=== PATIENT | male | born 1960 | race Caucasian/White ===

== ENCOUNTER 2018-02-06 12:07 | Inpatient (IN) | payer MEDICARE, OTHER ==
[2018-02-06] MEDS: SOD CHLORIDE 0.9% 100 ML (12:35)
[2018-02-06] MEDS: IODIXANOL LOCM 100 ML BTL (12:36)
[2018-02-06] MEDS: IODIXANOL LOCM 50 ML BTL (12:36)
[2018-02-06 12:48] LABS: ADD MAN DIFF? NO
[2018-02-06 12:51] LABS: BASOPHILS % 0.3 % (0.0-2.0); HEMATOCRIT 40.5 % (42.0-52.0); HEMOGLOBIN 13.2 g/dl (14.0-18.0); LYMPHOCYTES % 9.6 % (15.0-51.0); MEAN CORPUSCULAR HEMOGLOBIN 32.3 pg (29.0-33.0); MEAN CORPUSCULAR HGB CONC 32.6 g/dl (32.0-37.0); MEAN PLATELET VOLUME 11.8 fl (7.4-10.4); MONOCYTE # 1.4 10^3/ul (0.3-0.9); MONOCYTES % 13.7 % (0.0-11.0); NEUTROPHIL # 7.5 10^3/ul (1.6-7.5); NEUTROPHILS % 75.9 % (39.0-77.0); PLATELET COUNT 135 10^3/UL (140-415); POSITIVE DIFF @See below; RED BLOOD COUNT 4.09 10^6/ul (4.70-6.10); RED CELL DISTRIBUTION WIDTH 13.2 % (11.5-14.5)
[2018-02-06 12:51] LABS: WHITE BLOOD COUNT 9.9 10^3/ul (4.8-10.8)
[2018-02-06] MEDS: SODIUM CHLORIDE 0.9% 1L BAG IV* (12:56)
[2018-02-06] MEDS: SOD CHLORIDE 0.9% 500 ML IV (12:56)
[2018-02-06 13:10] LABS: PARTIAL THROMBOPLASTIN TIME 25.8 Sec (25.0-35.0); PROTIME 14.4 Sec (11.9-14.9); PT RATIO 1.1
[2018-02-06 13:18] LABS: ANION GAP 14 (8-16); BLOOD UREA NITROGEN 21 mg/dl (7-20); CALCIUM 8.6 mg/dl (8.4-10.2); CARBON DIOXIDE 32 mmol/L (21-31); CHLORIDE 103 mmol/L (97-110); CHOL/HDL RATIO 4.8 RATIO; CHOLESTEROL 154 mg/dl (100-200); CREATININE 1.06 mg/dl (0.61-1.24); GLUCOSE 128 mg/dl (70-220); HDL CHOLESTEROL 32 mg/dl (30-78); LDL CHOLESTEROL,CALCULATED 96 mg/dl; SODIUM 142 mmol/L (135-144); TRIGLYCERIDES 130 mg/dl (0-149)
[2018-02-06 13:19] LABS: LACTIC ACID 2.3 mmol/L (0.5-2.0)
[2018-02-06 13:21] LABS: VALPROATE 94 ug/ml (50-100)
[2018-02-06 13:24] LABS: CARBAMAZEPINE (TEGRETOL) < 3.0 ug/ml (8.0-12.0); ETHANOL < 10.0 mg/dl; PHENYTOIN (DILANTIN) < 3.0 ug/ml (10.0-20.0); POTASSIUM 6.8 mmol/L (3.5-5.1)
[2018-02-06 13:26] LABS: TROPONIN-I 0.013 ng/ml (0.000-0.120)
[2018-02-06] MEDS: ACETAMINOPHEN 650 MG SUPP PR (13:26)
[2018-02-06] MEDS: VANCOMYCIN 1 GM (PMX) 250 ML IVPB (13:26)
[2018-02-06] MEDS: CEFEPIME 1GM/50 ML (PMX) 50 ML IVPB (13:26)
[2018-02-06 13:30] LABS: AMPHETAMINE/METHAMPHETAMINE Negative (NEGATIVE); BARBITURATES Negative (NEGATIVE); BENZODIAZEPINES Negative (NEGATIVE); CANNABINOIDS Negative (NEGATIVE); COCAINE Negative (NEGATIVE); OPIATES Negative (NEGATIVE)
[2018-02-06] MEDS ORDERED: CALCIUM GLUCONATE 10% 1 GM in DEXTROSE 5% 100 ML IVPB (13:30)
[2018-02-06 13:33] LABS: UR BACTERIA FEW /HPF (NONE SEEN); UR RBC 1 /HPF (0-5); UR WBC 1 /HPF (0-5)
[2018-02-06 13:42] LABS: HEMOGLOBIN A1C 6.3 % (0-5.9)
[2018-02-06 13:54] LABS: ADD UMIC YES; UR ASCORBIC ACID NEGATIVE (NEGATIVE); UR BILIRUBIN (Dip) NEGATIVE (NEGATIVE); UR BLOOD (Dip) NEGATIVE (NEGATIVE); UR CLARITY CLEAR (CLEAR); UR COLOR YELLOW (YELLOW); UR GLUCOSE (Dip) NEGATIVE (NEGATIVE); UR KETONES (Dip) TRACE mg/dL (NEGATIVE); UR LEUKOCYTE ESTERASE (Dip) NEGATIVE Leu/ul (NEGATIVE); UR NITRITE (Dip) NEGATIVE (NEGATIVE); UR TOTAL PROTEIN (Dip) 1+ mg/dl (NEGATIVE); UR UROBILINOGEN (Dip) 1+ mg/dL (NEGATIVE)
[2018-02-06] MEDS ORDERED: ONDANSETRON 4 MG INJ IV ×2 (14:00→15:30)
[2018-02-06] MEDS ORDERED: ACETAMINOPHEN 325 MG TAB PO ×2 (14:00→15:30)
[2018-02-06] MEDS: SOD CHLORIDE 0.9% 1,000 ML IV ×2 (14:23→19:27)
[2018-02-06] MEDS: NA BICARBONATE 8.4% 50 ML SYG IV (14:23)
[2018-02-06] MEDS: CA GLUCONATE (GM) 10% 10ML INJ IV (14:30)
[2018-02-06] MEDS ORDERED: NACL 0.9% 3 ML SYG IV (15:30)
[2018-02-06] MEDS ORDERED: ALBUTEROL/IPRATROPIUM (NEB) 3 ML AMP HHN (15:30)
[2018-02-06] MEDS ORDERED: DOCUSATE SODIUM 100 MG CAP PO (15:30)
[2018-02-06] MEDS ORDERED: MAGNESIUM HYDROXIDE 30ML CUP PO (15:30)
[2018-02-06] MEDS ORDERED: NITROGLYCERIN (SL) 0.4 MG TAB SL (15:30)
[2018-02-06] MEDS ORDERED: VANCOMYCIN IV PER PHARMACY XX (15:30)
[2018-02-06] MEDS ORDERED: LORAZEPAM 2 MG INJ IV (15:30)
[2018-02-06] MEDS ORDERED: hydrALAzine 20 MG INJ IV (15:30)
[2018-02-06] MEDS ORDERED: morphine 2 MG INJ IV (15:30)
[2018-02-06] MEDS ORDERED: NA PHOSPHATE/BIPHOS 133 ML ENEMA PR (15:30)
[2018-02-06 15:42] LABS: LACTIC ACID 1.9 mmol/L (0.5-2.0)
[2018-02-06 15:43] LABS: ANION GAP 11 (8-16); BLOOD UREA NITROGEN 21 mg/dl (7-20); CALCIUM 8.4 mg/dl (8.4-10.2); CARBON DIOXIDE 32 mmol/L (21-31); CHLORIDE 107 mmol/L (97-110); CREATININE 0.85 mg/dl (0.61-1.24); GLUCOSE 104 mg/dl (70-220); SODIUM 145 mmol/L (135-144)
[2018-02-06 16:14] LABS: FREE T4 (FREE THYROXINE) 0.76 ng/dl (0.64-1.79)
[2018-02-06 18:35] LABS: LACTIC ACID 2.3 mmol/L (0.5-2.0)
[2018-02-06] MEDS: PIPER-TAZO 3.375 GM IV (PMX) 100 ML IVPB ×2 (18:55→23:50)
[2018-02-06] MEDS: VANCOMYCIN 1 GM in 250 ML IVPB (19:26)
[2018-02-06] MEDS: HEPARIN 5,000 UNIT/0.5 ML VIAL SC (21:21)
[2018-02-06] MEDS: DIVALPROEX (EC) 500 MG TAB PO (22:17)
[2018-02-06 22:54] LABS: LACTIC ACID 1.5 mmol/L (0.5-2.0)
[2018-02-07] MEDS: VANCOMYCIN 1.5 GM in SOD CHLORIDE 0.9% 250 ML IVPB ×2 (00:53→13:10)
[2018-02-07 01:12] LABS: LACTIC ACID 1.2 mmol/L (0.5-2.0)
[2018-02-07] MEDS: SOD CHLORIDE 0.9% 1,000 ML IV ×3 (01:27→21:27)
[2018-02-07 03:49] LABS: ADD MAN DIFF? NO
[2018-02-07 03:52] LABS: ABNORMAL IP MESSAGE 1; BASOPHILS % 0.3 % (0.0-2.0); EOSINOPHILS % 0.2 % (0.0-7.0); HEMATOCRIT 39.8 % (42.0-52.0); HEMOGLOBIN 12.6 g/dl (14.0-18.0); LYMPHOCYTES # 2.8 10^3/ul (0.8-2.9); LYMPHOCYTES % 23.4 % (15.0-51.0); MEAN CORPUSCULAR HEMOGLOBIN 31.7 pg (29.0-33.0); MEAN CORPUSCULAR HGB CONC 31.7 g/dl (32.0-37.0); MEAN CORPUSCULAR VOLUME 100.3 fl (82.0-101.0); MEAN PLATELET VOLUME 11.2 fl (7.4-10.4); MONOCYTE # 1.7 10^3/ul (0.3-0.9); MONOCYTES % 14.5 % (0.0-11.0); NEUTROPHIL # 7.2 10^3/ul (1.6-7.5); NEUTROPHILS % 61.2 % (39.0-77.0); PLATELET COUNT 120 10^3/UL (140-415); POSITIVE DIFF @See below; RED BLOOD COUNT 3.97 10^6/ul (4.70-6.10); RED CELL DISTRIBUTION WIDTH 13.5 % (11.5-14.5)
[2018-02-07 03:52] LABS: WHITE BLOOD COUNT 11.8 10^3/ul (4.8-10.8)
[2018-02-07 04:08] LABS: HEMOGLOBIN A1C 6.1 % (0-5.9)
[2018-02-07 04:26] LABS: CHOL/HDL RATIO 4.6 RATIO; HDL CHOLESTEROL 31 mg/dl (30-78); LDL CHOLESTEROL,CALCULATED 87 mg/dl; TRIGLYCERIDES 132 mg/dl (0-149)
[2018-02-07 04:26] LABS: CHOLESTEROL 144 mg/dl (100-200); LACTIC ACID 1.1 mmol/L (0.5-2.0)
[2018-02-07 04:27] LABS: ANION GAP 6 (8-16); BLOOD UREA NITROGEN 19 mg/dl (7-20); CALCIUM 8.3 mg/dl (8.4-10.2); CARBON DIOXIDE 33 mmol/L (21-31); CHLORIDE 108 mmol/L (97-110); CREATININE 0.96 mg/dl (0.61-1.24); GLUCOSE 105 mg/dl (70-220); MAGNESIUM 1.8 mg/dl (1.7-2.5); PHOSPHORUS 3.6 mg/dl (2.5-4.9); POTASSIUM 4.7 mmol/L (3.5-5.1); SODIUM 142 mmol/L (135-144)
[2018-02-07] MEDS: PIPER-TAZO 3.375 GM IV (PMX) 100 ML IVPB ×4 (05:50→23:31)
[2018-02-07] MEDS: PANTOPRAZOLE (EC) 40 MG TAB PO (05:50)
[2018-02-07 06:02] LABS: PHENOBARBITAL <5.0 mg/L (15.0-40.0)
[2018-02-07 08:01] LABS: LACTIC ACID 1.2 mmol/L (0.5-2.0)
[2018-02-07] MEDS: DIVALPROEX (EC) 500 MG TAB PO ×3 (09:27→21:18)
[2018-02-07] MEDS: ATORVASTATIN 40 MG TAB PO (09:27)
[2018-02-07] MEDS: HEPARIN 5,000 UNIT/0.5 ML VIAL SC ×2 (09:31→21:21)
[2018-02-07] MEDS: FLUTICASONE 0.05% 16 GM NAS SPRAY NASAL (11:59)
[2018-02-07 12:57] LABS: LACTIC ACID 2.1 mmol/L (0.5-2.0)
[2018-02-07] MEDS ORDERED: morphine LIQ (10 MG/5 ML) CUP PO (15:30)
[2018-02-07 16:26] LABS: LACTIC ACID 1.7 mmol/L (0.5-2.0)
[2018-02-07] MEDS: BRIVARACETAM 50 MG PO (21:18)
[2018-02-07 21:55] LABS: LACTIC ACID 1.6 mmol/L (0.5-2.0)
[2018-02-08 01:19] LABS: VANCOMYCIN,TROUGH 11.2 ug/ml (10.0-20.0)
[2018-02-08] MEDS: VANCOMYCIN 1.5 GM in SOD CHLORIDE 0.9% 250 ML IVPB ×2 (01:29→13:42)
[2018-02-08 03:48] LABS: ADD MAN DIFF? NO
[2018-02-08 04:03] LABS: BASOPHILS % 0.2 % (0.0-2.0); EOSINOPHILS % 0.1 % (0.0-7.0); HEMATOCRIT 38.5 % (42.0-52.0); HEMOGLOBIN 12.7 g/dl (14.0-18.0); LYMPHOCYTES # 2.4 10^3/ul (0.8-2.9); LYMPHOCYTES % 25.7 % (15.0-51.0); MEAN CORPUSCULAR HEMOGLOBIN 32.1 pg (29.0-33.0); MEAN CORPUSCULAR VOLUME 97.2 fl (82.0-101.0); MEAN PLATELET VOLUME 12.2 fl (7.4-10.4); MONOCYTE # 1.2 10^3/ul (0.3-0.9); MONOCYTES % 12.9 % (0.0-11.0); NEUTROPHIL # 5.5 10^3/ul (1.6-7.5); NEUTROPHILS % 60.2 % (39.0-77.0); PLATELET COUNT 123 10^3/UL (140-415); RED BLOOD COUNT 3.96 10^6/ul (4.70-6.10)
[2018-02-08 04:03] LABS: WHITE BLOOD COUNT 9.2 10^3/ul (4.8-10.8)
[2018-02-08 04:15] LABS: LACTIC ACID 1.2 mmol/L (0.5-2.0)
[2018-02-08 04:16] LABS: ANION GAP 5 (8-16); BLOOD UREA NITROGEN 15 mg/dl (7-20); CALCIUM 8.4 mg/dl (8.4-10.2); CARBON DIOXIDE 30 mmol/L (21-31); CHLORIDE 107 mmol/L (97-110); GLUCOSE 111 mg/dl (70-220); SODIUM 138 mmol/L (135-144)
[2018-02-08] MEDS: PIPER-TAZO 3.375 GM IV (PMX) 100 ML IVPB ×3 (05:17→17:43)
[2018-02-08] MEDS: PANTOPRAZOLE (EC) 40 MG TAB PO (05:18)
[2018-02-08] MEDS: DIVALPROEX (EC) 500 MG TAB PO ×3 (08:21→20:56)
[2018-02-08] MEDS: ATORVASTATIN 40 MG TAB PO (08:21)
[2018-02-08] MEDS: SOD CHLORIDE 0.9% 1,000 ML IV (08:21)
[2018-02-08] MEDS: BRIVARACETAM 50 MG PO ×2 (08:21→21:29)
[2018-02-08] MEDS: FLUTICASONE 0.05% 16 GM NAS SPRAY NASAL (08:22)
[2018-02-08] MEDS: HEPARIN 5,000 UNIT/0.5 ML VIAL SC ×2 (08:24→21:01)
[2018-02-08 09:45] LABS: LACTIC ACID 1.6 mmol/L (0.5-2.0)
[2018-02-08] MEDS: LIDOCAINE 1% (MPF) 5 ML VIAL SC (12:30)
[2018-02-08] MEDS: clonAZEPAM 0.5 MG TAB PO ×2 (13:41→20:56)
[2018-02-09] MEDS: PIPER-TAZO 3.375 GM IV (PMX) 100 ML IVPB ×2 (01:15→05:34)
[2018-02-09] MEDS: VANCOMYCIN 1.5 GM in SOD CHLORIDE 0.9% 250 ML IVPB ×2 (01:17→12:34)
[2018-02-09] MEDS: PANTOPRAZOLE (EC) 40 MG TAB PO (05:34)
[2018-02-09] MEDS: clonAZEPAM 0.5 MG TAB PO ×2 (08:40→20:27)
[2018-02-09] MEDS: BRIVARACETAM 50 MG PO ×2 (08:40→20:32)
[2018-02-09] MEDS: DIVALPROEX (EC) 500 MG TAB PO ×3 (08:40→20:26)
[2018-02-09] MEDS: ATORVASTATIN 40 MG TAB PO (08:40)
[2018-02-09] MEDS: FLUTICASONE 0.05% 16 GM NAS SPRAY NASAL (08:40)
[2018-02-09] MEDS: HEPARIN 5,000 UNIT/0.5 ML VIAL SC ×2 (08:46→20:31)
[2018-02-09 08:53] LABS: ADD MAN DIFF? NO
[2018-02-09 08:57] LABS: BASOPHILS % 0.3 % (0.0-2.0); EOSINOPHILS % 0.1 % (0.0-7.0); HEMATOCRIT 39.8 % (42.0-52.0); HEMOGLOBIN 13.3 g/dl (14.0-18.0); LYMPHOCYTES # 1.9 10^3/ul (0.8-2.9); LYMPHOCYTES % 21.8 % (15.0-51.0); MEAN CORPUSCULAR HEMOGLOBIN 32.2 pg (29.0-33.0); MEAN CORPUSCULAR HGB CONC 33.4 g/dl (32.0-37.0); MEAN CORPUSCULAR VOLUME 96.4 fl (82.0-101.0); MEAN PLATELET VOLUME 12.5 fl (7.4-10.4); MONOCYTE # 1.2 10^3/ul (0.3-0.9); MONOCYTES % 13.1 % (0.0-11.0); NEUTROPHIL # 5.6 10^3/ul (1.6-7.5); NEUTROPHILS % 63.8 % (39.0-77.0); PLATELET COUNT 153 10^3/UL (140-415); RED BLOOD COUNT 4.13 10^6/ul (4.70-6.10); RED CELL DISTRIBUTION WIDTH 13.2 % (11.5-14.5)
[2018-02-09 08:57] LABS: WHITE BLOOD COUNT 8.8 10^3/ul (4.8-10.8)
[2018-02-09 09:19] LABS: PHOSPHORUS 3.4 mg/dl (2.5-4.9)
[2018-02-09 09:19] LABS: MAGNESIUM 1.9 mg/dl (1.7-2.5)
[2018-02-09 09:26] LABS: ANION GAP 15 (8-16)
[2018-02-09 09:40] LABS: BLOOD UREA NITROGEN 14 mg/dl (7-20); CARBON DIOXIDE 23 mmol/L (21-31); CHLORIDE 101 mmol/L (97-110); CREATININE 0.63 mg/dl (0.61-1.24); GLUCOSE 83 mg/dl (70-220); SODIUM 135 mmol/L (135-144)
[2018-02-09] MEDS: HYDROCODONE/APAP (5/325) TAB PO (21:24)
[2018-02-10] MEDS: VANCOMYCIN 1.5 GM in SOD CHLORIDE 0.9% 250 ML IVPB ×2 (01:23→12:29)
[2018-02-10] MEDS: PANTOPRAZOLE (EC) 40 MG TAB PO (06:34)
[2018-02-10] MEDS: FLUTICASONE 0.05% 16 GM NAS SPRAY NASAL (08:39)
[2018-02-10] MEDS: DIVALPROEX (EC) 500 MG TAB PO ×3 (08:39→20:26)
[2018-02-10] MEDS: BRIVARACETAM 50 MG PO ×2 (08:40→22:20)
[2018-02-10] MEDS: ATORVASTATIN 40 MG TAB PO (08:40)
[2018-02-10] MEDS: clonAZEPAM 0.5 MG TAB PO ×2 (08:40→20:26)
[2018-02-10] MEDS: HEPARIN 5,000 UNIT/0.5 ML VIAL SC ×2 (08:45→20:21)
[2018-02-10 08:54] LABS: ADD MAN DIFF? NO
[2018-02-10 08:59] LABS: WHITE BLOOD COUNT 7.6 10^3/ul (4.8-10.8)
[2018-02-10 08:59] LABS: BASOPHILS % 0.4 % (0.0-2.0); EOSINOPHILS % 0.1 % (0.0-7.0); HEMATOCRIT 37.6 % (42.0-52.0); HEMOGLOBIN 12.3 g/dl (14.0-18.0); LYMPHOCYTES % 26.2 % (15.0-51.0); MEAN CORPUSCULAR HEMOGLOBIN 31.9 pg (29.0-33.0); MEAN CORPUSCULAR HGB CONC 32.7 g/dl (32.0-37.0); MEAN CORPUSCULAR VOLUME 97.4 fl (82.0-101.0); MEAN PLATELET VOLUME 12.5 fl (7.4-10.4); MONOCYTE # 1.2 10^3/ul (0.3-0.9); MONOCYTES % 15.2 % (0.0-11.0); NEUTROPHIL # 4.3 10^3/ul (1.6-7.5); PLATELET COUNT 146 10^3/UL (140-415); RED BLOOD COUNT 3.86 10^6/ul (4.70-6.10); RED CELL DISTRIBUTION WIDTH 13.2 % (11.5-14.5)
[2018-02-10 09:22] LABS: ANION GAP 10 (8-16); BLOOD UREA NITROGEN 16 mg/dl (7-20); CALCIUM 8.8 mg/dl (8.4-10.2); CARBON DIOXIDE 30 mmol/L (21-31); CHLORIDE 106 mmol/L (97-110); CREATININE 0.83 mg/dl (0.61-1.24); GLUCOSE 86 mg/dl (70-220); POTASSIUM 3.8 mmol/L (3.5-5.1); SODIUM 142 mmol/L (135-144)
[2018-02-10] MEDS: LEVOFLOXACIN 750 MG TABLET PO (16:31)
[2018-02-11] MEDS: PANTOPRAZOLE (EC) 40 MG TAB PO (05:30)
[2018-02-11] MEDS: LEVOFLOXACIN 750 MG TABLET PO (05:30)
[2018-02-11 06:04] LABS: ADD MAN DIFF? NO
[2018-02-11 06:08] LABS: WHITE BLOOD COUNT 6.5 10^3/ul (4.8-10.8)
[2018-02-11 06:08] LABS: BASOPHIL # 0.1 10^3/ul (0.0-0.1); BASOPHILS % 0.9 % (0.0-2.0); EOSINOPHILS % 0.5 % (0.0-7.0); HEMATOCRIT 37.5 % (42.0-52.0); HEMOGLOBIN 12.5 g/dl (14.0-18.0); LYMPHOCYTES # 2.1 10^3/ul (0.8-2.9); LYMPHOCYTES % 33.2 % (15.0-51.0); MEAN CORPUSCULAR HEMOGLOBIN 32.5 pg (29.0-33.0); MEAN CORPUSCULAR HGB CONC 33.3 g/dl (32.0-37.0); MEAN CORPUSCULAR VOLUME 97.4 fl (82.0-101.0); MEAN PLATELET VOLUME 12.1 fl (7.4-10.4); MONOCYTES % 15.5 % (0.0-11.0); NEUTROPHIL # 3.1 10^3/ul (1.6-7.5); NEUTROPHILS % 47.9 % (39.0-77.0); PLATELET COUNT 148 10^3/UL (140-415); RED BLOOD COUNT 3.85 10^6/ul (4.70-6.10); RED CELL DISTRIBUTION WIDTH 12.9 % (11.5-14.5)
[2018-02-11 06:27] LABS: ANION GAP 10 (8-16); BLOOD UREA NITROGEN 17 mg/dl (7-20); CALCIUM 8.9 mg/dl (8.4-10.2); CARBON DIOXIDE 33 mmol/L (21-31); CHLORIDE 104 mmol/L (97-110); CREATININE 0.86 mg/dl (0.61-1.24); GLUCOSE 85 mg/dl (70-220); POTASSIUM 3.9 mmol/L (3.5-5.1); SODIUM 143 mmol/L (135-144)
[2018-02-11] MEDS: FLUTICASONE 0.05% 16 GM NAS SPRAY NASAL (09:08)
[2018-02-11] MEDS: DIVALPROEX (EC) 500 MG TAB PO ×2 (09:08→12:33)
[2018-02-11] MEDS: clonAZEPAM 0.5 MG TAB PO (09:08)
[2018-02-11] MEDS: BRIVARACETAM 50 MG PO (09:09)
[2018-02-11] MEDS: ATORVASTATIN 40 MG TAB PO (09:09)
[2018-02-11] MEDS: HEPARIN 5,000 UNIT/0.5 ML VIAL SC (09:10)
== END 2018-02-11 18:30 | disposition home or self-care (01) | DRG 871 ==
LOC: E/R 12:07 → MS2 02-10 09:42 → MS4 13:45
PROC: 02HV33Z Insertion of Infusion Device into Superior Vena Cava, Percutaneous Approach (ICD-10-PCS; principal; 2018-02-09)
DX: A41.1 Sepsis due to other specified staphylococcus (principal); J18.9 Pneumonia, unspecified organism; G92 Toxic encephalopathy; R65.20 Severe sepsis without septic shock; E87.5 Hyperkalemia; G40.909 Epilepsy, unspecified, not intractable, without status epilepticus; I10 Essential (primary) hypertension; E78.5 Hyperlipidemia, unspecified; R09.02 Hypoxemia; R62.50 Unspecified lack of expected normal physiological development in childhood; E78.00 Pure hypercholesterolemia, unspecified; F17.200 Nicotine dependence, unspecified, uncomplicated
CPT/HCPCS: 36415; 36569; 70450; 70496; 70498; 71045; 76937; 80048; 80061; 80156; 80164; 80184; 80185; 80202; 80307; 81001; 82962; 83036; 83605; 83735; 84100; 84439; 84443; 84484; 85025; 85610; 85730; 87040; 87075; 87086; 92610; 93005; 93306; 95819; 96365; 96366; 96368; 96375; 97161; 99291-25